=== PATIENT | female | born 1970 | race Caucasian/White ===

== ENCOUNTER 2023-08-22 11:12 | Emergency (ER) | payer BC, SELFPAY ==
[2023-08-22 11:14] VITALS: BP 124/85
--- NOTE | 2023-08-22 11:47 | ED.GENMED ---
History of Present Illness
General
Chief Complaint: Chest Pain
Source: patient
Exam Limitations: none
Time Seen by Provider: 08/22/23 11:25
Nursing documentation reviewed up to this point in time: agreed with
Travel History
Have you had any contact with someone who has COVID-19?: No
Do you have any symptoms of coronavirus? Fever > 100 degrees, chills, cough, shortness of breath, sore throat, loss of taste or smell, muscle aches, or headache?: No
History of Present Illness
History of Present Illness:
52-year-old female with past medical history of GERD, chronic cough who presents to the emergency department for evaluation of chest pain and shortness of breath. Patient reports that she has been dealing with intermittent shortness of breath
chronically and has seen a credit and collections representative without a clear diagnosis�she says that her doctor believes it could be due to anxiety. She says that over the past week or 2 her shortness of breath has been slightly worse. She says that over the past few
days she has noticed increasing nonproductive cough. She says that yesterday morning she woke up with some chest pain and this morning chest pain was persisting. She says she has had some tingling in her left arm and mild nausea. She said with
this constellation of symptoms decided she should come in to be assessed. She reports mild associated headache. She denies any fevers or chills. Denies any swelling or pain in her legs. She denies any abdominal pain. Although she has had nausea
she denies any vomiting. No diarrhea. Denies any other complaints. Denies any known cardiac history.
Review of Systems
Review of Systems
All Other Systems: ROS reviewed and negative except as documented in HPI and ROS
Constitutional: Reports fatigue; Denies fever or chills
EENT: Denies sore throat or runny nose
Respiratory: Reports cough and trouble breathing
Cardiac: Reports chest pain; Denies diaphoresis or palpitations
ABD/GI: Reports nausea; Denies abdominal pain, vomiting or diarrhea
: Denies flank pain
Musculoskeletal: Denies neck pain or back pain
Neurological: Reports headache and other (Tingling in left arm); Denies dizzy, weakness or numbness
Phy Exam
Physical Exam
Physical Exam:
General: Awake, alert, oriented x3; no acute distress
Head: Normocephalic, atraumatic
Eyes: Conjunctiva normal, sclera anicteric, pupils equal round and reactive to light bilaterally
Throat: Airway intact, handling secretions
Neck: Trachea midline, supple without meningismus
Lungs: Clear to auscultation bilaterally, no wheezing, rales, rhonchi
Heart: Regular rate and rhythm, no murmurs, gallops, or rubs
Abd: Soft, non distended, nontender
Neuro: Cranial nerves grossly intact, speech fluid
Skin: no rash
Extremities: No edema in extremities, equal pulses in all extremities
Scores
Heart Failure Risk
Heart Failure Risk Score: Not Applicable
Heart Score for Chest Pain Patients
STEMI patient?: No
History: Slightly or Non-Suspicious
ECG: Normal
Age: >45 - <65 years
Risk Factors: No Risk Factors
Troponin: </= Normal Limit
Heart Score for Chest Pain Patients: 1
Heart Score Risk: 2.5% MACE over next 6 weeks
PE Wells Score
Symptoms of DVT: No
No alternative diagnosis better explains the illness: No
Tachycardia with pulse > 100: No
Immobilization (>=3 days) or surgery within previous 4 weeks: No
Prior history of DVT or pulmonary embolism: No
Presence of hemoptysis: No
Presence of malignancy: No
Pulmonary Embolism Risk Score: 0
Probability of PE: Pt is low risk
Withdrawal Assessment of Alcohol
Withdrawal Assessment Completed?: Not applicable
Course
Orders/Labs/Results
Orders:
Orders
08/22/23 11:12
EKG [Electrocardiogram (*1)] Urgent
Reason for Study: Chest Pain
EKG- Treatment ONCE
08/22/23 11:27
CR Chest - 2 Views Urgent
Comment:
Reason For Exam: sob
08/22/23 11:41
COVID-19 Antigen Urgent
Source: Nasal Swab
Complete Blood Count/With Diff Urgent
Comprehensive Metabolic Panel Urgent
Lipase Urgent
Troponin I Urgent
Influenza A+B Rapid Molecular Urgent
PANTERA Source: Nasal Swab
Specimen Description:
08/22/23 11:46
D-Dimer Urgent
08/22/23 11:41
08/22/23 11:41
Vital Signs
Initial and Last Documented VS:
Initial Vital Signs
Temp Pulse Resp BP Pulse Ox
37.2 C 89 16 124/85 98
08/22/23 11:14 08/22/23 11:14 08/22/23 11:14 08/22/23 11:14 08/22/23 11:14
Last Documented Vital Signs
Temp Pulse Resp BP Pulse Ox
37.2 C 89 16 124/85 98
08/22/23 11:14 08/22/23 11:14 08/22/23 11:14 08/22/23 11:14 08/22/23 11:14
MDM/Problems Addressed
Differential Diagnosis Includes:
Pneumonia, pneumothorax, bronchitis, anemia, ACS, pericarditis/myocarditis, costochondritis, GERD, PE
MDM/Problems Addressed:
52-year-old female presents to the emergency room for evaluation of subacute on chronic dyspnea, worsening cough and some mild chest pain over the past 24 hours associate with transient paresthesias in the arm and some mild nausea this morning.
Vital signs are normal. Exam as above. EKG reviewed shows no change from prior. Plan to check labs including a CBC and a CMP, troponin. Will check D-dimer. Check chest x-ray. Swab for COVID and flu. Will monitor closely reassess after the above.
Labs reviewed: CBC unremarkable, CMP no clinically significant abnormalities. Troponin undetectable and with consistent symptoms for 24 hours this is sufficient to rule out acute RI. Patient's D-dimer is negative. Chest x-ray shows no acute
disease on my independent review. Suspect that this may be an episode of acute bronchitis. Will treat with a short course of steroid and albuterol. I think patient is stable for discharge and can follow-up with primary care physician as an
outpatient. She feels comfortable with this plan. Spoke about return precautions and all questions answered.
*Radiology
Radiology exam reviewed: preliminary read by ED provider and radiology read reviewed
*Pulse Oximetry
Patient hypoxic: no
*EKG
Interpreted by ED Provider?: Yes
Comparison EKG: no changes
Heart Rate: 81
Rate: normal
Rhythm: sinus
[place]: normal axis
Interval: normal interval
QRS Pattern: normal QRS
Ischemia: no ischemia
*Critical Care Note
Total Time (30-74mins, 75-104mins- exclusive of procedures): Not Applicable
Data Reviewed
Review of Other/Old Records Reveals: Labs and Records
Source: patient and records
ED Attending Note
-
Portions of this chart may have been created with voice recognition software.� Occasional wrong word or��sound alike� substitutions may have occurred due to the inherent limitations of voice recognition software.
Discharge Plan
Departure
Patient Disposition: Home (Routine Discharge)
Date of Disposition: 08/22/23
Time of Disposition: 12:26
Patient with high blood pressure during this ER visit?: No
Discharge Problem:
Dyspnea, Chest tightness
Instructions: Bronchitis, Adult ED, Shortness of Breath, Adult ED, Chest Pain PCP Follow Up
Prescriptions:
New
methylprednisolone [Medrol (Darren)] 4 mg tablets,dose pack
See Rx Instructions .ROUTE .COMPLEX Qty: 21 0RF
Rx Instructions:
for 6 days
albuterol sulfate [ProAir HFA] 90 mcg/actuation HFA aerosol inhaler
1 puff inhalation Q4HPRN PRN (Reason: shortness of breath) Qty: 6.7 0RF
No Action
albuterol sulfate 90 mcg/actuation aerosol powdr breath activated
2 inh inhalation Q4H PRN (Reason: shortness of breath) Qty: 1 0RF
Referrals:
NONE,* [Family Provider] -
Activity Restrictions/Additional Instructions:
Thank you for visiting the Emergency Department at [facility].
1. Please schedule a follow up appointment as directed. Call first thing tomorrow morning to make an appointment.
2. If indicated, please take your medications as instructed and indicated on discharge paperwork.
3. If any of your symptoms do not improve, or persist, or become more severe within 6-12 hours, please return to the emergency department for further care.
4. Please return to the emergency department if you develop a headache, neck pain/stiffness, fever greater than 100.4F, chest pain, shortness of breath, persistent nausea, vomiting, slurred speech, difficulty walking, numbness/tingling, weakness,
signs of infection or any other symptoms that are worrisome to you.
Please call [phone] if you have any questions.
Interventions
Interventions:
ED- Fall Risk Assessment Last Done: 08/22/23 11:51
ED- Cardiac Assessment Last Done: 08/22/23 11:51
Discharge Date and Time
Print Language: ANGUILLAN
[2023-08-22 11:59] LABS: % Eosinophils 2.6 % (0-6); % Immature Granulocytes 0.5 % (0-0.5); % Lymphocytes 28.9 % (20.5-51.1); % Monocytes 6.5 % (1.7-9.3); % Neutrophils 60.5 % (42.2-75.2); Absolute Basophils 0.1 10^3/uL (0-0.2); Absolute Eosinophils 0.2 10^3/uL (0-0.7); Absolute Lymphocytes 1.7 10^3/uL (1.2-3.4); Absolute Monocytes 0.4 10^3/uL (0.1-0.6); Absolute Neutrophils 3.5 10^3/uL (1.4-6.5); Hematocrit 42.2 % (37.0-47.0); Hemoglobin 14.5 g/dL (12.0-16.0); Mean Corp Hgb Conc. 34.4 g/dL (33.0-37.0); Mean Corpuscular Hgb 30.1 pg (27.0-31.0); Mean Corpuscular Volume 87.7 fL (81.0-99.0); Mean Platelet Volume 9.7 fL (7.4-10.4); Nucleated Red Blood Cells % 0 %; Platelet Count 187 10^3/uL (130-400); Red Blood Cell Count 4.81 10^6/uL (4.20-5.40); White Blood Cell Count 5.8 10^3/uL (4.8-10.8)
[2023-08-22 12:10] LABS: D-Dimer 0.28 ug/mlFEU (0.00-0.50)
[2023-08-22 12:12] LABS: ALT (SGPT) 15 U/L (0-35); AST (SGOT) 22 U/L (14-36); Albumin 4.1 g/dl (3.5-5.0); Alkaline Phosphatase 76 U/L (38-126); Blood Urea Nitrogen 16 mg/dl (7-17); COVID-19 Antigen Negative (Negative); Calcium 9.7 mg/dl (8.4-10.2); Carbon Dioxide 27 mmol/L (22-30); Chloride 105 mmol/L (98-107); Glucose 88 mg/dl (70-99); Lipase 71 U/L (23-300); Sodium 138 mmol/L (135-145); Total Bilirubin 0.8 mg/dl (0.2-1.3); Total Protein 7.3 g/dl (6.3-8.2); eGFR > 60.00
[2023-08-22 12:21] VITALS: BP 121/76
[2023-08-22 12:24] LABS: Troponin I < 0.012 ng/ml
== END 2023-08-22 12:49 | disposition home or self-care (01) ==
LOC: EMR 11:12
PROVIDERS: EMERGENCY PHYSICIAN Emergency Medicine
DX: R06.00 Dyspnea, unspecified (principal); R07.89 Other chest pain; K21.9 Gastro-esophageal reflux disease without esophagitis; D64.9 Anemia, unspecified
CPT/HCPCS: 99283; 71046; 80053; 83690; 84484; 85025; 85379; 87502; 87811; 93005

== ENCOUNTER 2024-12-31 06:00 | Emergency (ER) | payer OTHER, SELFPAY ==
[2024-12-31 06:06] VITALS: BP 155/86
--- NOTE | 2024-12-31 06:38 | ED.GENMED ---
History of Present Illness
General
Chief Complaint: Chest Pain
Source: patient and spouse
Time Seen by Provider: 12/31/24 06:24
History of Present Illness
History of Present Illness:
This patient is a 54-year-old female who states that sometime during the day yesterday her left arm started to feel little heavy although she denies weakness or clumsiness. She says it just did not feel comfortable to her although this is now
resolved. With this she felt tingling but not numbness in her left leg. Then, while trying to go to sleep at around midnight she noted a gradual onset of discomfort in the left side of her chest that radiates to her left shoulder and around to her
back. At first it was 'stabbing', and then she noted that it felt 'dull'. It is worse with a deep breath and certain movements. She does not feel that the pain is ripping or tearing quality nor does it radiate through to her back. She also notes
that she has been more tired than usual recently although she wonders if this is related to travel as she just returned from [place] a week ago. She also notes that she has been having sweating although she wonders if this is related to
menopause. She noted slight nausea with this but denies vomiting, numbness, headache, neck pain, lower back pain, leg swelling. Patient has chronic cough and dyspnea which is unchanged from prior. She otherwise denies complaints. Of note,
patient had a stress test earlier this year which was unremarkable for significant illness. She describes her father having illness in his 50s although she believes that his first cardiac related illness was in his 60s. She is not on any estrogen
products.
Past History
Past History
ED Past Medical History: Other (Chronic cough and dyspnea)
ED Past Surgical History: Cholecystectomy and Gynecological
Social History
Tobacco: Former smoker
Alcohol: Occasional
Drug: None
Personal:
Living: with family
Phy Exam
Physical Exam
Physical Exam:
GENERAL: Alert , in no apparent distress
EYE: pupils equal and reactive
NECK: Supple, no significant adenopathy.
ENT: o/p clr, mmm.
CARDIAC: Regular rate and rhythm .
LUNGS: Clear breath sounds bilaterally, no acute respiratory distress, no wheezes/rales/rhonchi
ABDOMEN: Soft, without focal tenderness, no r/g, no cvat
NEUROLOGICAL: Alert and oriented, no focal neuro deficits
SKIN: Warm and dry, skin intact.
MUSCULOSKELETAL: No edema, well perfused.
PSYCH: Normal and appropriate interaction.
Scores
Heart Score for Chest Pain Patients
STEMI patient?: Not applicable
Course
Orders/Labs/Results
Orders:
Orders
12/31/24 06:08
Electrocardiogram (*1) Urgent
Reason for Study: Chest Pain
EKG- Treatment ONCE
12/31/24 06:28
CMP [Comprehensive Metabolic Panel] Urgent
Complete Blood Count/With Diff Urgent
Troponin I Urgent
12/31/24 06:43
D-Dimer Urgent
12/31/24 08:45
CT Chest Angio W/wo Iv Contras Urgent
Comment:
Reason For Exam: cp to back
12/31/24 09:13
Troponin I Urgent
Abnormal Lab Results
12/31/24
06:28
MCHC 32.9 L g/dL
(33.0-37.0)
BUN 18 H mg/dl
(7-17)
12/31/24 06:28
12/31/24 06:28
Vital Signs
Initial and Last Documented VS:
Initial Vital Signs
Temp Pulse Resp BP Pulse Ox
98.2 F 72 12 155/86 100
12/31/24 06:06 12/31/24 06:06 12/31/24 06:06 12/31/24 06:06 12/31/24 06:06
Last Documented Vital Signs
Temp Pulse Resp BP Pulse Ox
98.2 F 76 12 133/77 96
12/31/24 06:06 12/31/24 11:00 12/31/24 11:00 12/31/24 11:00 12/31/24 11:00
*Pulse Oximetry
SaO2: 100
Oxygen Mode of Delivery: Room air
Patient hypoxic: no
*Critical Care Note
Total Time (30-74mins, 75-104mins- exclusive of procedures): Not Applicable
Update Note
Update Note:
Patient presents to the Emergency Department with __chest pain radiating to shoulder and back, left arm uncomfortable
Number and Complexity of Problems Addressed at the Encounter
� Chronic conditions affecting care:
� Acute Exacerbation and/or Progression of Chronic Illness:
� Differential Diagnosis includes: But not limited to ACS, PE, dissection, musculoskeletal pain, pleurisy, etc. etc.
Amount and/or Complexity of Data to be Reviewed and Analyzed
� I performed an independent evaluation of and my interpretation is:
EKG: Read by me, normal sinus rhythm, no acute ischemia
CT:FINDINGS:
VASCULAR:
Normal caliber thoracic aorta. No findings of intramural hematoma, dissection or other acute aortic pathology. Minimal calcified plaque within the thoracic arch. Great vessels of the arch are widely patent. Pulmonary artery is normal in caliber. No
proximal filling defects.
LUNGS/PLEURA: Central airways are patent. No focal airspace disease or suspect nodules. Subsegmental atelectasis within both posterior lower lobes. No pleural effusions or pneumothorax.
MEDIASTINUM: No hilar or mediastinal lymphadenopathy. No masses.
HEART: Normal sized without pericardial effusion.
CHEST WALL: Unremarkable thyroid gland. No supraclavicular or axillary lymphadenopathy.
UPPER ABDOMEN: Surgically absent gallbladder.
BONES: No suspicious lesions.
IMPRESSION:
1. No acute findings within the chest. Negative for aortic dissection or pulmonary embolism.
2. Minimal subsegmental atelectasis in both posterior lower lobes.
3. Additional findings above.
Xrays:
Laboratory Studies: Generally unremarkable, troponin x 2 unremarkable
Other:
� Review of other/old records reveals:
� Clinical information was obtained by an independent historian: who is bedside
� Prescriptions/Medications Considered but not given:
� Further testing considered but not performed:
Risk of Complications and/or Morbidity or Mortality of Patient Management
� Social determinants of health affecting care:
� Discussion with other providers (PCP, Hospitalists, Consultants, etc):
� Escalation of care including admission/observation vs risk of discharge considered: 1:09 PM workup generally unremarkable here, ECG not consistent with acute ischemia, troponin x 2 unremarkable, CT does not demonstrate
dissection, etc. etc. Discussed with patient importance of follow-up and reasons to return to the ER.
ED Attending Note
-
Portions of this chart may have been created with voice recognition software.� Occasional wrong word or��sound alike� substitutions may have occurred due to the inherent limitations of voice recognition software.
Discharge Plan
Departure
Patient Disposition: Home (Routine Discharge)
Date of Disposition: 12/31/24
Time of Disposition: 13:10
Patient with high blood pressure during this ER visit?: Yes
Condition: Good
Discharge Problem:
Chest pain
Instructions: Chest Pain PCP Follow Up, BLOOD PRESSURE
Prescriptions:
No Action
albuterol sulfate 90 mcg/actuation aerosol powdr breath activated
2 inh inhalation Q4H PRN (Reason: shortness of breath) Qty: 1 0RF
methylprednisolone [Medrol (Darren)] 4 mg tablets,dose pack
See Rx Instructions .ROUTE .COMPLEX Qty: 21 0RF
Rx Instructions:
for 6 days
albuterol sulfate [ProAir HFA] 90 mcg/actuation HFA aerosol inhaler
1 puff inhalation Q4HPRN PRN (Reason: shortness of breath) Qty: 6.7 0RF
Referrals:
Rosalee Marr DO [Family Provider, Internal Medicine] - Follow up in 2-3 days
Activity Restrictions/Additional Instructions:
IF YOU DEVELOP INCREASING NEW OR PERSISTENT PAIN, ANY TROUBLE BREATHING, SWELLING, VOMITING, DIZZINESS, OR OTHER WORRISOME SIGNS, PLEASE RETURN TO THE ER IMMEDIATELY!
Interventions
Interventions:
*Risk Screen - Suicide Last Done: 12/31/24 06:06
*General Assessment Last Done: 12/31/24 06:21
*Neglect/Abuse Screening Last Done: 12/31/24 06:06
*ED- Fall Risk Assessment Last Done: 12/31/24 06:19
*ED COVID-19 Vaccine History Last Done: 12/31/24 06:20
*Nursing Disposition Last Done: 12/31/24 13:46
ED- Cardiac Assessment Last Done: 12/31/24 06:18
Discharge Date and Time
Discharge Date/Time: 12/31/24 13:59
Print Language: INDONESIAN
[2024-12-31 06:43] LABS: Hematocrit 42.5 % (37.0-47.0); Hemoglobin 14.0 g/dL (12.0-16.0); Mean Corp Hgb Conc. 32.9 g/dL (33.0-37.0); Mean Corpuscular Volume 86.9 fL (81.0-99.0); Nucleated Red Blood Cells % 0 %; Platelet Count 185 10^3/uL (130-400); Red Cell Dist. Width 12.0 % (11.5-14.5)
[2024-12-31 07:00] VITALS: BP 143/88
[2024-12-31 07:01] VITALS: BMI 29.3
[2024-12-31 07:07] LABS: D-Dimer 0.29 ug/mlFEU (0.00-0.50)
[2024-12-31 07:08] LABS: Troponin I < 0.012 ng/ml
[2024-12-31 07:14] LABS: ALT (SGPT) 12 U/L (0-35); AST (SGOT) 17 U/L (14-36); Albumin 4.2 g/dl (3.5-5.0); Alkaline Phosphatase 63 U/L (38-126); Blood Urea Nitrogen 18 mg/dl (7-17); Calcium 9.2 mg/dl (8.4-10.2); Carbon Dioxide 30 mmol/L (22-30); Chloride 105 mmol/L (98-107); Estimated Creatinine Clearance 79 ml/min; Glucose 89 mg/dl (70-99); Potassium 3.9 mmol/L (3.5-5.1); Sodium 140 mmol/L (135-145); Total Protein 7.4 g/dl (6.3-8.2); eGFR > 60.00
[2024-12-31 08:00] VITALS: BP 136/84
[2024-12-31 09:00] VITALS: BP 125/88
[2024-12-31 09:51] LABS: Troponin I < 0.012 ng/ml
[2024-12-31 10:00] VITALS: BP 140/86
[2024-12-31 11:00] VITALS: BP 133/77
== END 2024-12-31 13:59 | disposition home or self-care (01) ==
LOC: EMR 06:00
PROVIDERS: EMERGENCY PHYSICIAN Emergency Medicine; FAMILY PHYSICIAN Internal Medicine
DX: R07.9 Chest pain, unspecified (principal); Z87.891 Personal history of nicotine dependence; Z90.49 Acquired absence of other specified parts of digestive tract
CPT/HCPCS: 99284; 71275; 80053; 84484; 85025; 85379; 93005; Q9967